=== PATIENT | female | born 1995 | race Caucasian/White ===

== ENCOUNTER 2018-06-10 22:10 | Emergency (ER) | payer OTHER ==
[~2018-06-10] VITALS: Ht 152.4 cm; Wt 56.0 kg
[2018-06-10 23:52] LABS: CLARITY URINE CLEAR (CLEAR); COLOR URINE YELLOW (YELLOW); KETONES URINE NEGATIVE (NEGATIVE); LEUKOCYTE ESTERASE URINE NEGATIVE (NEGATIVE); NITRITE URINE NEGATIVE (NEGATIVE); OCCULT BLOOD URINE 3+ (NEGATIVE); PH URINE 6.5 (4.5-8.0); PROTEIN URINE NEGATIVE (NEGATIVE); SPECIFIC GRAVITY URINE 1.013 (1.005-1.030)
[2018-06-11] MEDS ORDERED: ACETAMINOPHEN 325MG TABLET PO STA (01:43)
[2018-06-11] MEDS ORDERED: SODIUM CHLORIDE 0.9% 1,000 ML IV ONE ×2 (01:43→05:22)
[2018-06-11 02:39] LABS: CHLORIDE 109 mEq/L (98-107)
[2018-06-11 02:43] LABS: INR 1.1; PROTHROMBIN TIME 10.8 sec (9.1-11.1)
[2018-06-11 02:53] LABS: BASOPHILS % 0.5 % (0.0-2.0); EOSINOPHILS % 0.4 % (0.0-5.0); HEMATOCRIT. 29.9 % (36.0-48.0); HEMOGLOBIN. 10.4 g/dL (12.0-16.0); LYMPHOCYTES % 24.9 % (20.0-50.0); MEAN CORPUSCULAR VOLUME 89.2 fL (81.0-99.0); MEAN PLATELET VOLUME 7.8 fl (7.4-10.4); MONOCYTES % 8.5 % (2.0-8.0); NEUTROPHILS % 65.7 % (40.0-76.0); PLATELET 257 x1000/uL (130-400); RED BLOOD CELL COUNT 3.36 mill/uL (4.2-5.4); RED CELL DISTRIBUTION WIDTH 13.5 % (11.6-14.6)
[2018-06-11 09:23] VITALS: BP 92/55
== END 2018-06-11 09:48 | disposition home or self-care (01) ==
LOC: ER 22:10
DX: O02.1 Missed abortion (principal)
CPT/HCPCS: 36415; 76801; 80053; 81003; 83690; 84702; 85025; 85610; 86850; 86900; 86901; 99285; J7030; Z7610

== ENCOUNTER 2018-11-07 11:34 | Emergency (ER) | payer MEDICAID, OTHER ==
[~2018-11-07] VITALS: Ht 152.4 cm; Wt 52.2 kg
[2018-11-07 13:23] LABS: CLARITY URINE CLOUDY (CLEAR); KETONES URINE TRACE (NEGATIVE); LEUKOCYTE ESTERASE URINE 2+ (NEGATIVE); NITRITE URINE NEGATIVE (NEGATIVE); OCCULT BLOOD URINE 3+ (NEGATIVE); PH URINE 6.5 (4.5-8.0); PROTEIN URINE 2+ (NEGATIVE); SPECIFIC GRAVITY URINE 1.018 (1.005-1.030); UROBILINOGEN URINE 0.2 E.U./dL (0.2-1.0)
[2018-11-07 13:27] LABS: COLOR URINE BLOODY (YELLOW)
[2018-11-07 16:42] LABS: CHLORIDE 108 mEq/L (98-107)
[2018-11-07 16:44] LABS: BASOPHILS % 0.8 % (0.0-2.0); EOSINOPHILS % 0.4 % (0.0-5.0); HEMATOCRIT. 32.2 % (36.0-48.0); HEMOGLOBIN. 10.4 g/dL (12.0-16.0); LYMPHOCYTES % 31.7 % (20.0-50.0); MEAN CORPUSCULAR HEMOGLOBIN 27.2 pg (28.0-32.0); MEAN CORPUSCULAR VOLUME 84.1 fL (81.0-99.0); MEAN PLATELET VOLUME 7.5 fl (7.4-10.4); MONOCYTES % 7.5 % (2.0-8.0); NEUTROPHILS % 59.6 % (40.0-76.0); PLATELET 275 x1000/uL (130-400); RED BLOOD CELL COUNT 3.83 mill/uL (4.2-5.4)
[2018-11-07 17:08] LABS: B-HCG QUANTITATIVE 1046 mIU/mL (<3)
[2018-11-07 18:00] VITALS: BP 109/63
== END 2018-11-07 18:21 | disposition home or self-care (01) ==
LOC: ER 11:34
DX: O02.1 Missed abortion (principal); O23.41 Unspecified infection of urinary tract in pregnancy, first trimester; Z3A.01 Less than 8 weeks gestation of pregnancy; Z98.890 Other specified postprocedural states
CPT/HCPCS: 36415; 76830; 76856; 81025; 84702; 86850; 86900; 99284

== ENCOUNTER 2019-05-15 13:44 | Emergency (ER) | payer MEDICAID ==
[~2019-05-15] VITALS: Ht 165.1 cm; Wt 62.0 kg
[2019-05-15] MEDS ORDERED: ACETAMINOPHEN 325MG TABLET PO PRN (14:30)
[2019-05-15 14:51] LABS: CLARITY URINE CLEAR (CLEAR); COLOR URINE YELLOW (YELLOW); KETONES URINE NEGATIVE (NEGATIVE); LEUKOCYTE ESTERASE URINE NEGATIVE (NEGATIVE); NITRITE URINE NEGATIVE (NEGATIVE); OCCULT BLOOD URINE NEGATIVE (NEGATIVE); PH URINE 7.5 (4.5-8.0); PROTEIN URINE NEGATIVE (NEGATIVE); SPECIFIC GRAVITY URINE 1.021 (1.005-1.030); UROBILINOGEN URINE 0.2 E.U./dL (0.2-1.0)
[2019-05-15 15:01] LABS: BASOPHILS % 0.8 % (0.0-2.0); EOSINOPHILS % 0.5 % (0.0-5.0); HEMOGLOBIN. 10.2 g/dL (12.0-16.0); LYMPHOCYTES % 30.4 % (20.0-50.0); MEAN CORPUSCULAR HEMOGLOBIN 26.1 pg (28.0-32.0); MEAN CORPUSCULAR VOLUME 79.4 fL (81.0-99.0); MEAN PLATELET VOLUME 7.5 fl (7.4-10.4); MONOCYTES % 11.3 % (2.0-8.0); PLATELET 276 x1000/uL (130-400); RED CELL DISTRIBUTION WIDTH 15.6 % (11.6-14.6)
[2019-05-15 15:09] LABS: CHLORIDE 107 mEq/L (98-107)
[2019-05-15 15:23] LABS: B-HCG QUANTITATIVE 888 mIU/mL (<3)
[2019-05-15] MEDS ORDERED: METHOTREXATE SODIUM/PF 50 MG/2 ML VIAL IM ONE (18:30)
[2019-05-15] MEDS ORDERED: METHOTREXATE SODIUM/PF 50 MG/2 ML VIAL IM NR (18:30)
[2019-05-15 20:06] VITALS: BP 103/64
[2019-05-15] MEDS ORDERED: HYDROCODONE/ACETAMINOPHEN 5/325MG TABLET PO ONE (20:15)
[2019-05-18 14:07] LABS: CHLAMYDIA TRACHOMATIS NAA Negative (Negative); NEISSERIA GONORRHOEAE NAA Negative (Negative)
== END 2019-05-15 21:42 | disposition home or self-care (01) ==
LOC: ER 13:51
DX: O00.90 Unspecified ectopic pregnancy without intrauterine pregnancy (principal); O23.591 Infection of other part of genital tract in pregnancy, first trimester; R10.30 Lower abdominal pain, unspecified; Z3A.00 Weeks of gestation of pregnancy not specified
CPT/HCPCS: 36415; 76801; 76817; 80053; 81003; 81025; 84702; 85025; 86850; 86900; 86901; 87210; 87491; 87591; 96372; 99284; J9260

== ENCOUNTER 2019-05-20 10:36 | Emergency (ER) | payer MEDICAID ==
[~2019-05-20] VITALS: Ht 152.4 cm; Wt 61.0 kg
[2019-05-20 12:31] LABS: BASOPHILS % 0.5 % (0.0-2.0); EOSINOPHILS % 0.3 % (0.0-5.0); HEMATOCRIT. 35.9 % (36.0-48.0); HEMOGLOBIN. 11.7 g/dL (12.0-16.0); LYMPHOCYTES % 28.8 % (20.0-50.0); MEAN CORPUSCULAR HEMOGLOBIN 25.9 pg (28.0-32.0); MEAN CORPUSCULAR VOLUME 79.5 fL (81.0-99.0); MEAN PLATELET VOLUME 7.2 fl (7.4-10.4); MONOCYTES % 7.1 % (2.0-8.0); NEUTROPHILS % 63.3 % (40.0-76.0); PLATELET 297 x1000/uL (130-400); RED BLOOD CELL COUNT 4.52 mill/uL (4.2-5.4); RED CELL DISTRIBUTION WIDTH 15.9 % (11.6-14.6)
[2019-05-20 12:38] LABS: CHLORIDE 107 mEq/L (98-107)
[2019-05-20 12:50] LABS: CLARITY URINE TURBID (CLEAR); COLOR URINE YELLOW (YELLOW); KETONES URINE NEGATIVE (NEGATIVE); LEUKOCYTE ESTERASE URINE 3+ (NEGATIVE); NITRITE URINE NEGATIVE (NEGATIVE); OCCULT BLOOD URINE NEGATIVE (NEGATIVE); PH URINE 5.5 (4.5-8.0); PROTEIN URINE NEGATIVE (NEGATIVE); SPECIFIC GRAVITY URINE 1.024 (1.005-1.030); UROBILINOGEN URINE 0.2 E.U./dL (0.2-1.0)
[2019-05-20 13:01] LABS: B-HCG QUANTITATIVE 3077 mIU/mL (<3)
[2019-05-20] MEDS ORDERED: IBUPROFEN 600MG TABLET PO ONE (14:15)
[2019-05-20 15:35] VITALS: BP 85/42
== END 2019-05-20 15:49 | disposition home or self-care (01) ==
LOC: ER 10:36
DX: O23.41 Unspecified infection of urinary tract in pregnancy, first trimester (principal); Z3A.00 Weeks of gestation of pregnancy not specified
CPT/HCPCS: 36415; 76801; 81003; 81025; 84702; 99284

== ENCOUNTER 2020-06-25 22:10 | Emergency (ER) | payer MEDICAID ==
[~2020-06-25] VITALS: Ht 152.4 cm; Wt 63.0 kg
[2020-06-25] MEDS ORDERED: LIDOCAINE 1%/EPI 1:100,000 10 ML VIAL IJ ONE (23:30)
[2020-06-25] MEDS ORDERED: TETANUS, DIPHTHERIA, PERTUSSIS VAC/PF 0.5ML (>7YR OLD) IM ONE (23:30)
[2020-06-25] MEDS ORDERED: BACITRACIN ZINC OINT UDPKT TOP ONE (23:30)
[2020-06-26 01:05] VITALS: BP 115/63
== END 2020-06-26 01:05 | disposition home or self-care (01) ==
LOC: ER 22:10
DX: O99.89 Other specified diseases and conditions complicating pregnancy, childbirth and the puerperium (principal); S81.822A Laceration with foreign body, left lower leg, initial encounter; S81.821A Laceration with foreign body, right lower leg, initial encounter; S41.122A Laceration with foreign body of left upper arm, initial encounter; W25.XXXA Contact with sharp glass, initial encounter; S41.121A Laceration with foreign body of right upper arm, initial encounter; O26.899 Other specified pregnancy related conditions, unspecified trimester; Y93.E1 Activity, personal bathing and showering; Y92.012 Bathroom of single-family (private) house as the place of occurrence of the external cause; Z23 Encounter for immunization
CPT/HCPCS: 90471; 90715; 99283; J3490